=== PATIENT | male | born 1935 | race Caucasian/White ===

== ENCOUNTER → 2016-09-29 | Outpatient (CLI) | payer MEDICARE ==
[2016-09-29 11:35] LABS: BLOOD GAS BASE EXCESS -4.4 mmol/L (-2-2); BLOOD GAS CARBOXYHEMOGLOBIN 2.3 % (0-4); BLOOD GAS HCO3 20 mmol/L (22-26); BLOOD GAS O2 HGB SATURATION 95 % (90-100); BLOOD GAS OXYGEN CONTENT 9.6 Vol % (12.0-20.0); BLOOD GAS PCO2 34 mmHg (38-42); BLOOD GAS PO2 100 mmHg (61-120); BLOOD GAS TOTAL HGB 7.1 G/DL (12.0-16.0); CRITICAL VALUE NO; DRAW SITE RT RADIAL; FIO2 21 %; NUMBER OF ARTERIAL PUNCTURES 1; STAT NO; TEMP CORR TO 98.6; ULNAR PULSE PRESENT
--- NOTE | 2016-10-02 11:06 | RSPPFT ---
DATE OF PROCEDURE: 09/29/16 COMMENTS: Spirometry with FVC of 1.7 predicted 3.8, FEV1 of 1.2 predicted 2.4, FEV1/FVC ratio at 73% predicted 63%. Post-bronchodilator FVC increases to 2.1 and FEV1 to 1.6 implying responsiveness to acutely inhaled bronchodilator. Air trapping is present with RV at 3.1 predicted 2.5. TLC is 5.0 predicted 6.4. DLCO is 37% of predicted. IMPRESSION: On the basis of the above, patient has responsiveness to acutely inhaled bronchodilator. Air trapping is present. 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 There is a decrease in the DLCO. Flow volume loop is technically not satisfactory and if clinically indicated, upper airways obstruction should be considered.
== END ==
LOC: HRSP 10:28
PROVIDERS: ATTEND Family Medicine
DX: R06.02 Shortness of breath (principal)
CPT/HCPCS: 36600; 82805; 94060; 94726; 94729